=== PATIENT | female | born 1930 | race American Indian/Alaskan Native ===

== ENCOUNTER 2017-10-29 10:10 | Emergency (ER) | payer MEDICARE, MEDICAID ==
[2017-10-29 10:10] VITALS: BMI 34.2
[2017-10-29 10:48] VITALS: RESP 18
--- NOTE | 2017-10-29 11:02 | ED PDOC ---
Arrival/HPI - General Chief Complaint: Lower Extremity Problem/Injury Time Seen by Provider: 10/29/17 10:12 Historian: Patient, Family (Daughter), Lining Cutter (Daughter) - History of Present Illness Narrative History of Present Illness (Text): 10/29/17 11:02 A 87 year old female, whose past medical history includes hypertension, presents to the emergency department complaining of back and right leg pain since 3 days ago. Patient's daughter reports patient has difficulty ambulating due to pain and swelling to right leg. Patient's daughter also reports patient experiencing fever and denies any chills, shortness of breath, chest pain, diarrhea, nausea, vomiting, urinary symptoms, neck pain, headache, dizziness, or any other complaints. Patient's daughter notes patient has seen PMD 2 months ago with no significant findings and has not traveled out of country in the past 3 months. PMD: Dr. Queen Time/Duration: < week (3 days) Symptom Onset: Gradual Symptom Course: Unchanged Activities at Onset: Light Context: Home Past Medical History - Provider Review Nursing Documentation Reviewed: Yes - Infectious Disease Hx of Infectious Diseases: None - Tetanus Immunization Tetanus Immunization: Unknown - Reproductive Menopause: Yes - Cardiac Hx Hypertension: Yes - HEENT Hx HEENT Disorder: Yes (eyeglasses) Hx Blind: No (family denies blind in left eye) Hx Cataracts: Yes (laser sx left eye) - Renal Hx Renal Disorder: No - Endocrine/Metabolic Hx Endocrine Disorders: No - Hematological/Oncological Hx Blood Disorders: No - Integumentary Hx Dermatological Disorder: No - Musculoskeletal/Rheumatological Hx Arthritis: Yes (right knee and lower back) Hx Falls: No Hx Gout: Yes Other/Comment: chronic pain to lower back and right knee from arthritis, chronic b/l bottom of feet and toes pain - Gastrointestinal Hx Gastrointestinal Disorders: No - Genitourinary/Gynecological Hx Genitourinary Disorders: No - Psychiatric Hx Psychophysiologic Disorder: No Hx Substance Use: No - Anesthesia Hx Anesthesia: Yes - Suicidal Assessment Feels Threatened In Home Enviroment: No Family/Social History - Physician Review Nursing Documentation Reviewed: Yes Family/Social History: Unknown Family HX Smoking Status: Never Smoked Hx Alcohol Use: No Hx Substance Use: No Hx Substance Use Treatment: No Allergies/Home Meds Allergies/Adverse Reactions: Allergies No Known Allergies Allergy (Verified 10/29/17 10:48) Home Medications: Home Meds Medication Instructions Recorded Confirmed amLODIPine [Norvasc] 10 mg PO DAILY 01/21/16 01/21/16 Review of Systems - Physician Review All systems were reviewed & negative as marked: Yes - Review of Systems Constitutional: Fevers. absent: Night Sweats Respiratory: absent: SOB Cardiovascular: absent: Chest Pain Gastrointestinal: absent: Diarrhea, Nausea, Vomiting Genitourinary Female: absent: Urine Output Changes Musculoskeletal: Back Pain, Other (+right leg pain ). absent: Arthralgias, Neck Pain, Joint Swelling, Myalgias Neurological: absent: Headache, Dizziness Physical Exam Vital Signs Reviewed: Yes Vital Signs Temp Pulse Resp BP Pulse Ox 10/29/17 14:10 98.5 F 76 18 118/72 99 10/29/17 12:10 84 18 127/86 98 10/29/17 10:43 98.8 F 76 18 119/72 99 Temperature: Afebrile Blood Pressure: Normal Pulse: Regular Respiratory Rate: Normal Appearance: Positive for: Well-Appearing, Non-Toxic, Comfortable Pain Distress: None Mental Status: Positive for: Alert and Oriented X 3 - Systems Exam Head: Present: Atraumatic, Normocephalic Pupils: Present: PERRL Extroacular Muscles: Present: EOMI Conjunctiva: Present: Normal Mouth: Present: Moist Mucous Membranes Neck: Present: Normal Range of Motion, MIDLINE TENDERNESS (+midline thoracic tenderness), Other (+tender to palpation Right lumbar spine region). No: Meningeal Signs, Paraspinal Tenderness, JVD, Lymphadenopathy, Bruit, Trachea Midline Respiratory/Chest: Present: Clear to Auscultation, Good Air Exchange. No: Respiratory Distress, Accessory Muscle Use Cardiovascular: Present: Regular Rate and Rhythm, Normal S1, S2. No: Murmurs Abdomen: No: Tenderness, Distention, Peritoneal Signs Back: Present: Normal Inspection Upper Extremity: Present: NORMAL PULSES, Tenderness (+Tender to palpation of right shoulder). No: Cyanosis, Edema, Swelling, Erythema, Neurovascularly Intact, Temperature Abnormalties, Capillary Refill < 2s, Deformity, Norm 2-Pt Discrimination Lower Extremity: Present: NORMAL PULSES, Tenderness (+right leg ), Swelling (+ right leg), Other (Unable to felx right knee; passive extension). No: Normal Inspection, Edema, CALF TENDERNESS, Cyanosis, Normal ROM, Makayla's Sign, Erythema , Deformity, Temperature Abnormalties, Neurovascularly Intact, Capillary Refill < 2 s Neurological: Present: GCS=15, CN II-XII Intact, Speech Normal Skin: Present: Warm, Dry, Normal Color. No: Rashes Psychiatric: Present: Alert, Oriented x 3, Normal Insight, Normal Concentration Medical Decision Making ED Course and Treatment: 10/29/17 11:1 Impression: 87 year old female presenting to the Emergency department complaining of the back and right leg pain. Differential Diagnosis included but are not limited to: - Sciatica - Lumbar stenosis - Osteoarthritis - Septic Joint Plan: -- CT of Lumbar spine without contrast -- B-Type Natriuretic Peptide -- CMP -- CBC -- Toradol -- Lidoderm -- XRay of Right knew with patella 3 views -- XRay of Right shoulder -- Reassess and disposition Prior Visits: Notes and results from previous visits were reviewed. Progress Notes: CT Lumbar Spine 10/29/17 12:31 Dictator: Spencer Hunt MD Procedure: CT Lumbar Spine without contrast Impression: Degenerative changes in the lower lumbar spine with severe left- sided foraminal stenosis at L4-5. KNEE XR 10/29/17 13:25 Dictator: Spencer Hunt MD Procedure: Right knee radiographs Impression: Moderate Osterarthritis SHOULDER XR Dictator: Spencer Hunt MD Procedure: Radiographs of Right shoulder Impression: There is narrowing of the subacromial space with bone on bone contact. This is most consistent with a rotator cuff tear. 10/29/17 14:30 Labs reviewed with benign findings. Patient reassessed and reports marked improvement in back and shoulder pain. She desires to go home. Patient and daughter informed of findings and advised to follow up with an orthopedic doctor(Dr. Valdez). Scripts provided. Return protocol given with arm sling. Patient ambulatory with assistance. She is stable for discharge. - Lab Interpretations Lab Results: 10/29/17 11:30 10/29/17 11:30 Lab Results 10/29/17 11:30: Sodium 142, Potassium 4.5, Chloride 104, Carbon Dioxide 25, Anion Gap 17, BUN 14, Creatinine 0.7, Est GFR ( Amer) > 60, Est GFR (Non- Af Amer) > 60, Random Glucose 94, Calcium 9.3, Total Bilirubin 0.5, AST 24, ALT 12, Alkaline Phosphatase 77, NT-Pro-B Natriuret Pep 172, Total Protein 8.2, Albumin 4.3, Globulin 3.9, Albumin/Globulin Ratio 1.1 10/29/17 11:30: WBC 7.1, RBC 4.41, Hgb 12.4, Hct 37.4, MCV 84.8, MCH 28.1, MCHC 33.2, RDW 14.4, Plt Count 239, MPV 11.1 H, Gran % 43.4 L, Lymph % (Auto) 48.7 H , Rogers % (Auto) 4.8, Eos % (Auto) 2.8, Baso % (Auto) 0.3, Gran # 3.06, Lymph # ( Auto) 3.4, Rogers # (Auto) 0.3, Eos # (Auto) 0.2, Baso # (Auto) 0.02, ESR 58 H - RAD Interpretation Radiology Orders: 10/29/17 11:03 LUMBAR SPINE W/O CONTRAST [CT] Stat KNEE W PATELLA RIGHT 3 VIEW [RAD] Stat 10/29/17 11:04 SHOULDER RIGHT [RAD] Stat - Medication Orders Current Medication Orders: Discontinued Medications Ketorolac Tromethamine (Toradol) 15 mg IVP STAT STA Stop: 10/29/17 11:06 Last Admin: 10/29/17 11:28 Dose: 15 mg [facility] Pain Assessment Document 10/29/17 11:28 HI (Rec: 10/29/17 11:31 [id number] Pain Reassessment Is this a pain reassessment? No Sleep Is patient sleeping during reassessment? No Presence of Pain Presence of Pain Yes Location Left, Right or Bilateral Right Pain Location Body Site Generalized Description Description Constant Intensity of Pain at present 7 Acceptable Level of Pain 0 IVP Administration Document 10/29/17 11:28 HI (Rec: 10/29/17 11:31 [id number][facility] Charges for Administration # of IVP Administrations 1 Re-Assess: DAMARI Pain Assessment Document 10/29/17 12:28 HI (Rec: 10/29/17 13:39 [id number] Pain Reassessment Is this a pain reassessment? Yes Sleep Is patient sleeping during reassessment? No Presence of Pain Presence of Pain No Lidocaine (Lidoderm) 1 ea TD ONCE ONE Stop: 10/29/17 11:06 Last Admin: 10/29/17 11:31 Dose: 1 ea MAR Transdermal Patch Site Document 10/29/17 11:31 HI (Rec: 10/29/17 11:31 HI [id number]) Transdermal Patch Site Transdermal Patch Site Right Lower Back Oxycodone/Acetaminophen (Percocet 5/325 Mg Tab) 1 tab PO STAT STA Stop: 10/29/17 13:30 Last Admin: 10/29/17 13:39 Dose: 1 tab MAR Pain Assessment Document 10/29/17 13:39 HI (Rec: 10/29/17 13:39 HI [id number]) Pain Reassessment Is this a pain reassessment? Yes Sleep Is patient sleeping during reassessment? No Presence of Pain Presence of Pain Yes Location Left, Right or Bilateral Right - Scribe Statement The provider has reviewed the documentation as recorded by the Ese Lucero All medical record entries made by the Joseeibphill were at my direction and personally dictated by me. I have reviewed the chart and agree that the record accurately reflects my personal performance of the history, physical exam, medical decision making, and the department course for this patient. I have also personally directed, reviewed, and agree with the discharge instructions and disposition. Disposition/Present on Arrival - Present on Arrival Any Indicators Present on Arrival: No History of DVT/PE: No History of Uncontrolled Diabetes: No Urinary Catheter: No History of Decub. Ulcer: No History Surgical Site Infection Following: None - Disposition Have Diagnosis and Disposition been Completed?: Yes Diagnosis: Osteoarthritis, Lumbar stenosis, Rotator cuff tear Disposition: HOME/ ROUTINE Disposition Time: 14:13 Patient Plan: Discharge Patient Problems: Current Active Problems Problem Status Onset Osteoarthritis Acute Lumbar stenosis Acute Rotator cuff tear Acute Condition: IMPROVED Discharge Instructions (ExitCare): Osteoarthritis (DC), Rotator Cuff Injury (DC ), Spinal Stenosis (DC) Prescriptions: Diazepam [Valium] 2 mg PO PRN PRN #4 tablet PRN Reason: Anxiety Ibuprofen [Motrin] 600 mg PO Q6H 3 Days #12 tab Lidocaine 5% [Lidoderm] 1 ea TD Q12H 4 Days #4 patch Referrals: Phyllis Valdez MD [Staff Provider] - Follow up with primary Forms: [employer] (Japanese)
[2017-10-29] MEDS ORDERED: Lidocaine 5% Patch TD ONE (11:05)
[2017-10-29 11:46] LABS: ALB/GLOB RATIO 1.1 (1.1-1.8); ALBUMIN 4.3 g/dL (3.0-4.8); CALCIUM 9.3 mg/dL (8.4-10.5); GFR NON-AFRICAN AMERICAN > 60
[2017-10-29 11:50] LABS: BASO # 0.02 K/mm3 (0.0-2.0); BASO % 0.3 % (0.0-3.0); EOS # 0.2 (0.0-0.7); EOS % 2.8 % (1.5-5.0); GRAN # 3.06 (1.4-6.5); GRAN % 43.4 % (50.0-68.0); HEMOGLOBIN 12.4 g/dL (12.0-16.0); LYMPH # 3.4 (1.2-3.4); LYMPH % 48.7 % (22.0-35.0); MEAN CELL VOLUME 84.8 fl (80.0-105.0); MEAN CORPUSCULAR HEMOGLOBIN 28.1 pg (25.0-35.0); MEAN CORPUSCULAR HGB CONC 33.2 g/dl (31.0-37.0); MEAN PLATELET VOLUME 11.1 fl (7.0-11.0); MONO # 0.3 (0.1-0.6); MONO % 4.8 % (1.0-6.0); RBC 4.41 10^6/uL (3.5-6.1); RED CELL DISTRIBUTION WIDTH 14.4 % (11.5-14.5); WHITE BLOOD COUNT 7.1 10^3/ul (4.5-11.0)
[2017-10-29 11:54] LABS: B-TYPE NATRIURETIC PEPTIDE 172 pg/mL (0-450)
[2017-10-29 12:00] LABS: ALT/SGPT 12 U/L (7-56); AST/SGOT 24 U/L (14-36); BLOOD UREA NITROGEN 14 mg/dL (7-21)
--- NOTE | 2017-10-29 12:27 | CT ---
Date of service: 10/29/2017 PROCEDURE: CT Lumbar Spine without contrast HISTORY: back pain COMPARISON: None available. TECHNIQUE: Axial computed tomography images were obtained of the lumbar spine without the use of intravenous contrast. Coronal and sagittal reformatted images were created and reviewed. Radiation dose: Total exam DLP = 1035 mGy-cm. This CT exam was performed using one or more of the following dose reduction techniques: Automated exposure control, adjustment of the mA and/or kV according to patient size, and/or use of iterative reconstruction technique. FINDINGS: VERTEBRAE: Unremarkable. No fracture. Normal alignment. DISCS/SPINAL CANAL/NEURAL FORAMINA: L1-2: Unremarkable. L2-3: Unremarkable. L3-4: Symmetrical disc bulge without stenosis L4-5: There is an asymmetric disc bulge with severe stenosis of the left L4 neural foramen. Severe facet arthropathy L5-S1: Severe facet arthropathy without stenosis PARASPINAL SOFT TISSUES: Unremarkable. OTHER FINDINGS: None. IMPRESSION: Degenerative changes in the lower lumbar spine with severe left-sided foraminal stenosis at L4-5
--- NOTE | 2017-10-29 13:16 | RAD ---
Date of service: 10/29/2017 PROCEDURE: Right Knee Radiographs. HISTORY: knee pain COMPARISON: None. FINDINGS: BONES: Normal. No fracture. JOINTS: There is moderate osteoarthritis with joint space narrowing and osteophyte formation in the medial compartment. Osteophytes can be seen in the femoral condyles anteriorly and posteriorly JOINT EFFUSION: None. OTHER FINDINGS: None. IMPRESSION: Moderate osteoarthritis
--- NOTE | 2017-10-29 13:19 | RAD ---
Date of service: 10/29/2017 PROCEDURE: Radiographs of the Right Shoulder HISTORY: shoulder pain COMPARISON: No prior. FINDINGS: BONES: Normal. No fracture. JOINTS: There is narrowing of the subacromial space with bone on bone contact. This is most consistent with a rotator cuff tear. SOFT TISSUES: Normal. OTHER FINDINGS: There are some overlying lines and tubes on the Y-view IMPRESSION: There is narrowing of the subacromial space with bone on bone contact. This is most consistent with a rotator cuff tear.
[2017-10-29] MEDS ORDERED: Oxycodone/Acetaminophen 5/325 mg Tab PO STA (13:29)
[2017-10-29 14:37] VITALS: BP 118/72; PULSE 76; TEMP 98.5; O2SAT 99
== END 2017-10-29 14:37 | disposition home or self-care (01) ==
LOC: ED 10:10
DX: M75.101 Unspecified rotator cuff tear or rupture of right shoulder, not specified as traumatic (principal); M17.11 Unilateral primary osteoarthritis, right knee; M48.061 Spinal stenosis, lumbar region without neurogenic claudication; I10 Essential (primary) hypertension
CPT/HCPCS: 72131; 73030; 73562; 80053; 83880; 85025; 85651; 96374; 99284; J1885

== ENCOUNTER 2018-03-16 13:43 | Outpatient (CLI) | payer MEDICARE, MEDICAID | END 2018-03-16 13:44 | disposition home or self-care (01) | LOC: RAD 13:43 ==

== ENCOUNTER 2018-03-20 11:52 | Outpatient (CLI) | payer MEDICARE, MEDICAID | END 2018-03-20 11:53 | disposition home or self-care (01) | LOC: RAD 11:52 ==